=== PATIENT | male | born 1945 | race Caucasian/White ===

== ENCOUNTER 2019-06-15 09:13 | Emergency (ER) | payer MEDICARE, OTHER ==
[~2019-06-15] VITALS: Ht 170.2 cm; Wt 62.1 kg
[~2019-06-15 09:13] MED LIST: DIAZ5TAB4 PO
[2019-06-15 09:15] VITALS: Ht 170.2 cm; Wt 62.1 kg
[2019-06-15 10:43] VITALS: BP 134/78; PULSE 76; RESP 20
== END 2019-06-15 10:59 | disposition home or self-care (01) ==
LOC: E/R 09:13
DX: M54.2 Cervicalgia (principal); R07.9 Chest pain, unspecified
CPT/HCPCS: 36415; 71045; 80048; 84484; 85025; 93005